=== PATIENT | female | born 1990 | race African-American/Black ===

== ENCOUNTER 2021-02-16 22:55 | Emergency (ER) | payer SELFPAY ==
[~2021-02-16] VITALS: Ht 157.5 cm; Wt 81.0 kg
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
[2021-02-16] MEDS ORDERED: IV RINGERS SOLUTION,LACTATED 1,000 ML IV SCH ×2 (23:30)
[2021-02-16 23:50] LABS: BASO % 0 % (0-3); EOS # 0.1 x10^3/uL (0.0-0.7); EOS % 1 % (0-3); HEMATOCRIT 43.8 % (36.0-47.0); LYMPH # 2.1 x10^3/uL (1.0-4.8); LYMPH % 21 % (24-48); MEAN CORPUSCULAR HEMOGLOBIN 32 pg (25-35); MEAN CORPUSCULAR HGB CONC 34 g/dL (31-37); MEAN CORPUSCULAR VOLUME 92 fL (79-100); MONO # 0.7 x10^3/uL (0.0-1.1); MONO % 7 % (0-9); NEUT # 7.2 x10^3uL (1.8-7.7); NEUT % 71 % (31-73); PLATELET COUNT 349 x10^3/uL (140-400); RED BLOOD COUNT 4.75 x10^6/uL (3.50-5.40); RED CELL DISTRIBUTION WIDTH 12.5 % (11.5-14.5); WHITE BLOOD COUNT 10.1 x10^3/uL (4.0-11.0)
[2021-02-17 00:05] LABS: CALCIUM 9.1 mg/dL (8.5-10.1); GFR 79.3; POTASSIUM 3.2 mmol/L (3.5-5.1)
[2021-02-17 00:08] LABS: ETHANOL < 10 mg/dL (0-10); SALIC < 2.8 mg/dL (2.8-20.0)
[2021-02-17 00:09] LABS: ACETAMIN < 2.0 mcg/mL (10-30)
[2021-02-17 00:19] LABS: DIRECT BILIRUBIN 0.2 mg/dL (0.0-0.2); MAGNESIUM 2.3 mg/dL (1.8-2.4); TOTAL BILIRUBIN 0.7 mg/dL (0.2-1.0); TOTAL PROTEIN 7.4 g/dL (6.4-8.2)
[2021-02-17 00:48] LABS: BILIRUBIN,URINE NEG (NEG); CLARITY,URINE CLOUDY; COLOR,URINE YELLOW; GLUCOSE,URINE NEG (NEG); NITRITE,URINE NEG (NEG)
[2021-02-17 00:49] LABS: BACTERIA,URINE MOD /HPF (0-FEW); RBC,URINE 0 /HPF (0-2); SQUAMOUS EPITHELIAL CELL,UR MOD /LPF
[2021-02-17 00:50] LABS: BARBITURATES NEG (NEG); BENZODIAZEPINES NEG (NEG); CANNABINOIDS POS (NEG); COCAINE NEG (NEG); METHADONE NEG (NEG); OPIATES NEG (NEG); PHENCYCLIDINE NEG (NEG)
[2021-02-17 01:01] LABS: AMPHETAMINE/METHAMPHETAMINE NEG (NEG)
--- NOTE | 2021-02-17 01:39 | EKG ---
[address] [address] Test Date: 2021-02-17 Test Time: 00:11:37 Pat Name: NATALIYA CARUSO Department: Room: Gender: F Lead Tinner: : 1990 Requested By: MARC REED Order Number: [id number] Reading MD: Measurements Intervals [place] Rate: 82 P: 79 [place]: 136 QRS: 3 QRSD: 80 T: 32 QT: 348 QTc: 409 Interpretive Statements SINUS RHYTHM NORMAL ECG RI6.02 No previous ECG available for comparison
--- NOTE | 2021-02-17 01:55 | RAD ---
Study: XR CHEST 1V Indication: Overdose. Comparison: None. Findings: Low lung volumes with bibasilar volume loss. No confluent infiltrate, layering effusion or pneumothor ax. The cardiomediastinal silhouette and isidro are within normal limits. Impression: No acute radiographic abnormality of the chest. Haziness at the lower lungs favored atelectasis in th e setting of low lung volumes. Electronically signed by: CHING MELGOZA MD (02/17/2021 1:52 AM) [facility]
[2021-02-17 02:10] VITALS: BP 161/109
[2021-02-17] MEDS ORDERED: cefTRIAXone SODIUM 1 GM VIAL ONE (02:40)
[2021-02-17] MEDS ORDERED: IV NORMAL SALINE 50ML 50 ML ONE (02:40)
[2021-02-17] MEDS ORDERED: FLUC100T7 PO (02:51)
[2021-02-17] MEDS ORDERED: CEPH500T PO (02:51)
--- NOTE | 2021-02-17 04:58 | EKG ---
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
== END 2021-02-17 03:40 | disposition home or self-care (01) ==
LOC: ER 22:55
DX: T40.691A Poisoning by other narcotics, accidental (unintentional), initial encounter (principal); F41.9 Anxiety disorder, unspecified; F32.9 Major depressive disorder, single episode, unspecified; N39.0 Urinary tract infection, site not specified; E87.6 Hypokalemia; F12.10 Cannabis abuse, uncomplicated; F17.210 Nicotine dependence, cigarettes, uncomplicated; Y92.9 Unspecified place or not applicable
CPT/HCPCS: 36415; 71045; 80048; 80076; 80307; 80329; 81001; 81025; 82550; 83735; 83880; 84443; 84484; 85025; 87086; 93005; 96361; 96365; 99285; G0480; J0696; J7120

== ENCOUNTER 2021-06-03 18:22 | Emergency (ER) | payer OTHER ==
[~2021-06-03 18:22] MED LIST: CEPH500T PO; FLUC100T7 PO
== END 2021-06-03 19:00 | disposition left against medical advice (07) ==
LOC: ER 18:22
DX: F19.239 Other psychoactive substance dependence with withdrawal, unspecified (principal); Z53.21 Procedure and treatment not carried out due to patient leaving prior to being seen by health care provider

== ENCOUNTER 2021-07-03 21:45 | Emergency (ER) | payer OTHER ==
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
[2021-07-04] MEDS ORDERED: MORPHINE SULFATE 10 MG/ML SYRINGE. SQ ONE
[2021-07-04 00:20] LABS: BARBITURATES NEG (NEG); BENZODIAZEPINES NEG (NEG); CANNABINOIDS NEG (NEG); COCAINE POS (NEG); METHADONE NEG (NEG); OPIATES NEG (NEG); PHENCYCLIDINE NEG (NEG)
[2021-07-04 00:21] LABS: AMPHETAMINE/METHAMPHETAMINE NEG (NEG)
[2021-07-04 00:22] LABS: BACTERIA,URINE 0 /HPF (0-FEW); BILIRUBIN,URINE NEG (NEG); CLARITY,URINE CLEAR; COLOR,URINE YELLOW; GLUCOSE,URINE NEG (NEG); NITRITE,URINE NEG (NEG); RBC,URINE 0 /HPF (0-2); SQUAMOUS EPITHELIAL CELL,UR FEW /LPF; UROBILINOGEN,URINE 0.2 mg/dL (0.2 mg/dL); WBC,URINE OCC /HPF (0-4)
[2021-07-04] MEDS ORDERED: KETOROLAC 60 MG/2 ML VIAL. IM ONE (02:32)
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
== END 2021-07-04 02:50 | disposition home or self-care (01) ==
LOC: ER 21:45
DX: S93.402A Sprain of unspecified ligament of left ankle, initial encounter (principal); S93.401A Sprain of unspecified ligament of right ankle, initial encounter; F14.90 Cocaine use, unspecified, uncomplicated; Z72.0 Tobacco use; V09.9XXA Pedestrian injured in unspecified transport accident, initial encounter; Y93.89 Activity, other specified; Y92.89 Other specified places as the place of occurrence of the external cause; Y99.8 Other external cause status
CPT/HCPCS: 29515; 36415; 73610; 73630; 80307; 81001; 81025; 96372; 99284; J2270

== ENCOUNTER → 2021-08-11 | Outpatient (CLI) | payer OTHER ==
[2021-08-11 11:52] LABS: BASO % 1 % (0-3); EOS # 0.1 x10^3/uL (0.0-0.7); EOS % 2 % (0-3); HEMATOCRIT 44.1 % (36.0-47.0); HEMOGLOBIN 14.8 g/dL (12.0-15.5); LYMPH # 1.5 x10^3/uL (1.0-4.8); LYMPH % 26 % (24-48); MEAN CORPUSCULAR HEMOGLOBIN 32 pg (25-35); MEAN CORPUSCULAR HGB CONC 34 g/dL (31-37); MEAN CORPUSCULAR VOLUME 95 fL (79-100); MONO # 0.3 x10^3/uL (0.0-1.1); MONO % 6 % (0-9); NEUT # 3.8 x10^3uL (1.8-7.7); NEUT % 66 % (31-73); PLATELET COUNT 295 x10^3/uL (140-400); RED BLOOD COUNT 4.66 x10^6/uL (3.50-5.40); RED CELL DISTRIBUTION WIDTH 13.4 % (11.5-14.5); WHITE BLOOD COUNT 5.7 x10^3/uL (4.0-11.0)
[2021-08-11 12:43] LABS: ALBUMIN 3.9 g/dL (3.4-5.0); CALCIUM 9.2 mg/dL (8.5-10.1); CREATININE 0.9 mg/dL (0.6-1.0); GFR 89.6; POTASSIUM 4.3 mmol/L (3.5-5.1); TOTAL BILIRUBIN 0.5 mg/dL (0.2-1.0); TOTAL PROTEIN 7.9 g/dL (6.4-8.2)
[2021-08-11 19:10] LABS: CHOLESTEROL/HDL RATIO 4.4; THYROID STIM HORMONE (TSH) 1.49 uIU/mL (0.358-3.740)
[2021-08-11 23:14] LABS: ESTRADIOL LEVEL 20.4 pg/mL (.); FSH 5.2 mIU/mL (.); LUTEINIZING HORMONE 3.4 mIU/mL (.); PROLACTIN 22.6 ng/mL (4.8-23.3)
[2021-08-12 02:14] LABS: HEMOGLOBIN A1C 4.9 % (4.8-5.6)
[2021-08-12 13:17] LABS: INSULIN LEVEL 11.9 uIU/mL (2.6-24.9)
[2021-08-14 09:17] LABS: TESTOSTERONE FREE 0.37 ng/dL (0.10-0.85); TESTOSTERONE TOTAL 13 ng/dL (13-71)
== END ==
LOC: LAB 09:17
PROVIDERS: ATTEND Obstetrics & Gynecology
DX: N97.9 Female infertility, unspecified (principal)
CPT/HCPCS: 80053; 80061; 82306; 82627; 82670; 83001; 83002; 83036; 83525; 84146; 84402; 84403; 84443; 85025

== ENCOUNTER → 2021-08-11 | Outpatient (CLI) | payer OTHER ==
--- NOTE | 2021-08-11 13:49 | RAD ---
Ultrasound pelvis complete and transvaginal ultrasound pelvis HISTORY: Menorrhagia and infertility Sonographic examination of the pelvis and performed by transabdominal and endovaginal technique. [facility]. Ultrasound pelvis complete transabdominal: The uterus and ovaries are not seen due to overlying bowel gas. Transvaginal ultrasound pelvis: The uterus measures 8.8 x 4.8 x 3.9 cm. The junctional zone is within normal limits. The endometrium appears normal measures 4.5 mm in thickness. There is a fibroid in the fundus of the uterus anteriorl y on the right that measures 1.2 x 0.9 x 1.2 cm. Echogenicity near the cervix is likely a small incid ental calcification. The ovaries are seen with normal blood flow. The right ovary measures 2.7 x 2.9 x 2.9 cm. The left ov tomás measures 3.8 x 2.1 x 2.2 cm. There are multiple small normal-appearing follicles within the ovari es. IMPRESSION: No significant findings. Electronically signed by: Wili Rowe III, MD (08/11/2021 1:47 PM) [facility]
== END ==
LOC: US 09:26
PROVIDERS: ATTEND Obstetrics & Gynecology
DX: D25.9 Leiomyoma of uterus, unspecified (principal); N92.0 Excessive and frequent menstruation with regular cycle; N97.9 Female infertility, unspecified
CPT/HCPCS: 76830; 76856